=== PATIENT | female | born 1960 | race Caucasian/White ===

== ENCOUNTER 2017-05-30 11:38 | Emergency (ER) | payer OTHER ==
[2017-05-30 11:49] VITALS: O2SAT 98
--- NOTE | 2017-05-30 12:31 | C.PDOC ---
History Of Present Illness 57 yr old female presents to the ER with complaints of fever, cough, congestion and generalized body aches since yesterday. Patient also states her urine looks dark. Denies chills, chest pain, SOB, nausea, vomiting, abdominal pain, diarrhea , dysuria, headache or dizziness. Time Seen by Provider: 05/30/17 12:11 Chief Complaint (Nursing): Flu-like Symptoms History Per: Patient History/Exam Limitations: no limitations Onset/Duration Of Symptoms: Days (1) Current Symptoms Are (Timing): Still Present Past Medical History Reviewed: Historical Data, Nursing Documentation, Vital Signs Vital Signs: Last Vital Signs Temp 98.3 F 05/30/17 14:13 Pulse 76 05/30/17 14:13 Resp 16 05/30/17 14:13 BP 117/79 05/30/17 14:13 Pulse Ox 98 05/30/17 14:13 - Medical History PMH: Arthritis, Hypercholesterolemia, Hyperlipidemia Family History: States: No Known Family Hx - Social History Hx Tobacco Use: No Hx Alcohol Use: No Hx Substance Use: No - Immunization History Hx Tetanus Toxoid Vaccination: No Hx Influenza Vaccination: No Hx Pneumococcal Vaccination: No Review Of Systems Except As Marked, All Systems Reviewed And Found Negative. Constitutional: Positive for: Fever (subjective), Other ((+) generalized body aches). Negative for: Chills ENT: Positive for: Nose Congestion Cardiovascular: Negative for: Chest Pain Respiratory: Positive for: Cough. Negative for: Shortness of Breath Gastrointestinal: Negative for: Nausea, Vomiting, Abdominal Pain, Diarrhea Genitourinary: Negative for: Dysuria Neurological: Negative for: Headache, Dizziness Physical Exam - Physical Exam Appears: Non-toxic, No Acute Distress Skin: Warm, Dry, No Rash Head: Atraumatic, Normacephalic Eye(s): bilateral: Normal Inspection, PERRL, EOMI Ear(s): Bilateral: Normal Nose: Discharge (clear rhinorrhea) Oral Mucosa: Moist Throat: Normal, No Erythema, No Exudate, No Drooling Neck: Normal, Normal ROM, Supple Chest: Symmetrical, No Tenderness Cardiovascular: Rhythm Regular, No Murmur Respiratory: Normal Breath Sounds, No Rales, No Rhonchi, No Stridor, No Wheezing Gastrointestinal/Abdominal: Normal Exam, Soft, No Tenderness Back: Normal Inspection, No CVA Tenderness Extremity: Normal ROM, No Swelling Neurological/Psych: Oriented x3, Normal Speech ED Course And Treatment O2 Sat by Pulse Oximetry: 98 (RA) Pulse Ox Interpretation: Normal Medical Decision Making Medical Decision Making: PLAN: * Urinalysis 1400 UA results, delay with lab. Shows RBCs, no LE ketones or glucose. Patient remained afebrile in no acute distress. Rx for Tamiflu given. Patient advised on supportive treatment. Patient stable for discharge and instructed to follow up with PCP or clinic. Disposition Counseled Patient/Family Regarding: Diagnosis, Need For Followup, Rx Given - Disposition Disposition: HOME/ ROUTINE Disposition Time: 14:02 Condition: STABLE Additional Instructions: Usted tiene influenza, que es un virus que puede durar de 7 a 10 hewitt. [place] Tamiflu dos veces al da margie 5 hewitt para acortar el curso. [place] Tylenol o Motrin alternando cada 4-6 horas para Fiebre 100.4F o superior. Descansa y elvis muchos lquidos. Matthew un seguimiento con mendoza mdico primario o clnica en 1 semana para lissette evaluacin adicional. You have influenza, which is virus that can last 7-10 days. Take Tamiflu twice a day for 5 days to shorten the course. Take Tylenol or Motrin alternating every 4-6 hours for Fever 100.4F or higher. Rest and drink plenty of fluids. Follow up with your primary medical doctor or clinic in 1 week for further evaluation. Prescriptions: Oseltamivir [Tamiflu] 75 mg PO BID #10 cap Instructions: Influenza (ED) Forms: [employer] (Romanian) Print Language: KAZAKH - POA Present On Arrival: None - Clinical Impression Clinical Impression: Influenza - PA / IRONWORKER / Resident Statement MD/DO has reviewed & agrees with the documentation as recorded. - Scribe Statement The provider has reviewed the documentation as recorded by the Scribe Mira Caban All medical record entries made by the Scribe were at my direction and personally dictated by me. I have reviewed the chart and agree that the record accurately reflects my personal performance of the history, physical exam, medical decision making, and the department course for this patient. I have also personally directed, reviewed, and agree with the discharge instructions and disposition.
[2017-05-30 13:08] LABS: SQUAMOUS EPITHIAL 1 /hpf (0-5); URINE BACTERIA RARE (<OCC); URINE BILIRUBIN NEGATIVE (NEGATIVE); URINE BLOOD 3+ (NEGATIVE); URINE CLARITY Hazy (Clear); URINE COLOR Amber (YELLOW); URINE GLUCOSE (UA) NORMAL (Normal); URINE LEUKOCYTE ESTERASE NEG Leu/uL (Negative); URINE NITRATE NEGATIVE (NEGATIVE); URINE PROTEIN 2+ mg/dL (NEGATIVE); URINE UROBILINOGEN NORMAL mg/dL (0.2-1.0)
[2017-05-30 14:16] VITALS: BP 117/79; PULSE 76; RESP 16; TEMP 98.3
== END 2017-05-30 14:13 | disposition home or self-care (01) ==
LOC: C.ER 11:38
DX: J11.1 Influenza due to unidentified influenza virus with other respiratory manifestations (principal)